=== PATIENT | female | born 1980 | race Caucasian/White ===

== ENCOUNTER 2021-08-10 18:49 | Emergency (ER) | payer BC, SELFPAY ==
[2021-08-10 18:53] VITALS: BP 148/87; PULSE 83; RESP 14; TEMP 36.2; O2SAT 98
--- NOTE | 2021-08-10 19:08 | ECG_ITS ---
Measurements Intervals [place] Rate: 81 P: 20 PA: 161 QRS: -25 QRSD: 98 T: 16 QT: 396 QTc: 461 Interpretive Statements SINUS RHYTHM INCOMPLETE RIGHT BUNDLE BRANCH BLOCK DELAYED PRECORDIAL R/S TRANSITION VOLTAGE CRITERIA FOR LVH BORDERLINE T WAVE ABNORMALITY- INFERIOR LEADS BASELINE ARTIFACT- I, II, III, AVR, AVL, AVF, V1-V2 BORDERLINE ECG Electronically Signed On 08-11-2021 8:15:21 CDT by Crescencio Ruiz D.O.
[2021-08-10] MEDS: ONDANSETRON HCL ODT 4 MG TABLET PO (19:26)
[2021-08-10] MEDS: ACETAMINOPHEN 325 MG TABLET 650 MG PO (19:26)
--- NOTE | 2021-08-10 20:15 | ED.HEATRA ---
HPI - Head Injury General Chief complaint: Syncope Stated complaint: fall, head inj Time Seen by Provider: 08/10/21 19:07 History of Present Illness HPI Narrative: 40-year-old female presenting after she smokes marijuana, started, felt lightheaded, and then passed out. Denied any chest pain or difficulty breathing before this, she does endorse pain in the back of her head and bleeding from it. Denies pain or injury anywhere else other than her arm which has some abrasions. Tetanus shot up-to-date. Related Data Home Medications Medication Instructions Recorded Confirmed cetirizine mg 08/10/21 escitalopram oxalate mg 08/10/21 ezetimibe mg 08/10/21 fluticasone propionate INTRANASAL 08/10/21 Allergies Allergy/AdvReac Type Severity Reaction Status Date / Time Penicillins Allergy Mild Rash Verified 08/10/21 19:25 Review of Systems Review of Systems: CONST: Lightheadedness HEAD: Head trauma EYES: No blurry vision NECK: No neck pain C/V: No chest pain RESP: No difficulty breathing GI: Nausea during car ride but no vomiting M/S: Abrasions to arms SKIN: Cut to head NEURO: [No focal numbness or weakness] PSYCH: [No depression] [facility] Past Medical History Medical History (Updated 08/10/21 @ 20:31 by Leonela Patel MD) No active medical problems Social History Social History (Updated 08/10/21 @ 20:17 by Leonela Patel MD) Substance use type: marijuana Exam Narrative: EXAMINATION OF ORGAN SYSTEMS/BODY AREAS: Constitutional: Vital signs per nursing GENERAL:[No acute distress, non-toxic appearing.] HEAD: Normal with no signs of head trauma. EYES: EOMI, conjunctiva normal ENT: Hearing grossly intact LUNGS: Nonlabored breathing. HEART: [Regular rate and rhythm] ABD: [Soft], [tender to palpation] EXT: Normal range of motion SKIN: [No rashes or lesions.] NEURO: [Alert and oriented x 3. No gross focal sensory or strength deficits.] PSYCH: Normal affect Course Course Emergency Course: 40-year-old female presenting after she smoked some marijuana, stood up suddenly, and passed out. Vital signs stable here, exam shows normal neurologic exam, normal gait, but oozing wound to the posterior head with hematoma, no neck pain or chest tenderness, no obvious deformity. No indication for head CT or C-spine per [place] and [place] rules, patient is given Tylenol and Zofran with improvement in symptoms, wound is closed, bleeding controlled, return precautions provided and stable for discharge home. Can follow-up with primary care doctor. Vital Signs Vital signs: Vital Signs Temperature 97.2 F L 08/10/21 18:53 Pulse Rate 83 08/10/21 18:53 Respiratory Rate 14 08/10/21 18:53 Blood Pressure 148/87 H 08/10/21 18:53 Pulse Oximetry 98 08/10/21 18:53 Temperature 97.2 F L 08/10/21 18:53 Pulse Rate 83 08/10/21 18:53 Respiratory Rate 14 08/10/21 18:53 Blood Pressure 148/87 H 08/10/21 18:53 Pulse Oximetry 98 08/10/21 18:53 Procedures Laceration Laceration 1: Date: 08/10/21 Site: scalp Size (cm): 3 Description: irregular and clean Depth: simple, single layer Local Anesthetic: lidocaine 1% and with epi Amount of anesthesia used (mL): 5 Pre-repair: irrigated, irrigated extensively, minor debridement, deep structures intact and wound margins revised ====== Skin Level ====== Skin layer closed with: vicryl, dermabond and other (hair apposition) Size (cm): 4-0 Number of sutures: 3 Technique: simple, interrupted ====== Subcutaneous Layer ====== ====== Muscle Layer ====== ====== Tendon Layer ====== Discharge Plan Discharge Clinical Impression: Head injury Qualifiers: Encounter type: initial encounter Qualified Code(s): S09.90XA - Unspecified injury of head, initial encounter Syncope Qualifiers: Syncope type: unspecified Qualified Code(s): R55 - Syncope and collapse Patient Disposi
== END 2021-08-10 20:51 | disposition home or self-care (01) ==
PROVIDERS: Emergency Provider Emergency Medicine; PCP Internal Medicine
DX: S01.01XA Laceration without foreign body of scalp, initial encounter (principal); R55 Syncope and collapse; W18.39XA Other fall on same level, initial encounter
CPT/HCPCS: 12002; 93005; 99283; A9270

== ENCOUNTER 2021-11-12 14:14 | Outpatient (CLI) | payer BC, SELFPAY ==
--- NOTE | ~2021-11-12 | US_ITS ---
EXAMINATION: US pelvic complete DATE: 11/12/2021 14:33 INDICATION: Abnormal uterine bleeding Comparison:09/27/2010 TECHNIQUE: Multiple transabdominal sonographic images of the pelvis performed. FINDINGS: The uterus measures 3.8 x 2.6 x 2.8 cm. The endometrial complex measures 9 mm. The right ovary measures 3.8 x 2.6 x 2.6 cm and the left ovary measures 2.1 x 2.3 x 2.6 cm. There ar e small follicles in each ovary. Normal doppler signal in both ovaries. There is no free fluid in the pelvis. There are no abnormal masses seen on either side. IMPRESSION: 1. Unremarkable pelvic ultrasound. Reviewed, dictated and finalized at location B.
== END 2021-11-12 14:15 ==
PROVIDERS: PCP Obstetrics & Gynecology Gynecology; Visit Provider Advanced Practice Midwife
DX: N93.8 Other specified abnormal uterine and vaginal bleeding (principal)
CPT/HCPCS: 76856